=== PATIENT | male | born 2000 | race American Indian/Alaskan Native ===

== ENCOUNTER 2020-05-26 01:43 | Emergency (ER) | payer SELFPAY ==
[2020-05-26 05:32] VITALS: BP 128/82
[2020-05-26] MEDS ORDERED: methylPREDNISolone Sod Succinate 125 MG/2 ML INJ IM ONE (05:51)
[2020-05-26] MEDS ORDERED: IPRATROPIUM/ALBUTEROL SULFATE 3 ML AMPUL.NEB IH ONE (05:51)
--- NOTE | 2020-05-26 06:22 | Emergency Department Report ---
- General Chief Complaint: Upper Respiratory Infection Stated Complaint: SHORTNESS OF BREATH Source: patient Mode of arrival: Ambulatory Limitations: No Limitations - History of Present Illness Initial Comments: Patient is a 19-year-old -[place] male with a history of asthma with rare exacerbations who presents to the ED with complaint of acute onset persistent nasal and sinus congestion, persistent dry cough, shortness of breath and wheezing for the last 5 days, worse in the last 24 hours. Patient states that he has also been experiencing chest tightness from persistent cough. Patient states that he has not had any asthma attack in over 10 years and that he does not have any other treatment at home. Patient denies fever, chills, nausea, vomiting, dizziness, syncope, palpitations, diaphoresis, change in vision, abdominal pain, chest pain or headache. MD Complaint: cough, nasal congestion, sinus pain, other (wheezing and dyspnea) -: Sudden, days(s) (5) Severity: moderate Severity scale (0 -10): 4 Quality: dull, aching Consistency: intermittent Improves With: nothing Worsens With: nothing Associated Symptoms: denies other symptoms, rhinorrhea, nasal congestion, cough, shortness of breath. denies: fever, chills, myalgias, diaphoresis, headache, sore throat, stiff neck, chest pain, abdominal pain, nausea, vomiting, diarrhea, rash, confusion, weight loss, epistaxis, hoarseness, ear pain, other Treatments Prior to Arrival: none - Related Data Previous Rx's Medication Instructions Recorded Last Taken Type Albuterol Sulfate [Proventil Hfa] 1 - 2 puff IH Q6H PRN #1 hfa.aer.ad 05/26/20 Unknown Rx Azithromycin [Zithromax Z-ROSITA] 250 mg PO DAILY #6 tablet 05/26/20 Unknown Rx Benzonatate [Tessalon Perles] 100 mg PO Q8HR #30 capsule 05/26/20 Unknown Rx predniSONE [Deltasone] 40 mg PO QDAY #10 tab 05/26/20 Unknown Rx Allergies Allergy/AdvReac Type Severity Reaction Status Date / Time Penicillins Allergy Hives Verified 01/29/15 18:01 ED Review of Systems ROS: Stated complaint: SHORTNESS OF BREATH Other details as noted in HPI Constitutional: denies: chills, fever Eyes: denies: eye pain, eye discharge, vision change ENT: congestion. denies: ear pain, throat pain Respiratory: cough, shortness of breath, wheezing Cardiovascular: denies: chest pain, palpitations Endocrine: no symptoms reported Gastrointestinal: denies: abdominal pain, nausea, diarrhea Genitourinary: denies: urgency, dysuria Musculoskeletal: denies: back pain, joint swelling, arthralgia Skin: denies: rash, lesions Neurological: denies: headache, weakness, paresthesias Psychiatric: denies: anxiety, depression Hematological/Lymphatic: denies: easy bleeding, easy bruising ED Past Medical Hx - Past Medical History Previous Medical History?: Yes Hx Asthma: Yes - Social History Smoking Status: Never Smoker Substance Use Type: None - Medications Home Medications: Home Medications Medication Instructions Recorded Confirmed Last Taken Type Albuterol Sulfate [Proventil Hfa] 1 - 2 puff IH Q6H PRN #1 hfa.aer.ad 05/26/20 Unknown Rx Azithromycin [Zithromax Z-ROSITA] 250 mg PO DAILY #6 tablet 05/26/20 Unknown Rx Benzonatate [Tessalon Perles] 100 mg PO Q8HR #30 capsule 05/26/20 Unknown Rx predniSONE [Deltasone] 40 mg PO QDAY #10 tab 05/26/20 Unknown Rx ED Physical Exam - General Limitations: No Limitations General appearance: alert, in no apparent distress - Head Head exam: Present: atraumatic, normocephalic, normal inspection - Eye Eye exam: Present: normal appearance, PERRL, EOMI Pupils: Present: normal accommodation - ENT ENT exam: Present: normal orophraynx, mucous membranes moist, TM's normal bilaterally, normal external ear exam, other (Grossly congested nasal passages) - Neck Neck exam: Present: normal inspection, full ROM - Respiratory Respiratory exam: Present: wheezes (Mildly diffuse coarse wheezes throughout). Absent: respiratory distress, rhonchi, stridor, chest wall tenderness, accessory muscle use, decreased breath sounds, prolonged expiratory - Cardiovascular Cardiovascular Exam: Present: regular rate, normal rhythm, normal heart sounds. Absent: systolic murmur, diastolic murmur, rubs, gallop - GI/Abdominal GI/Abdominal exam: Present: soft, normal bowel sounds. Absent: tenderness, guarding, rebound, hyperactive bowel sounds, hypoactive bowel sounds, org anomegaly - Extremities Exam Extremities exam: Present: normal inspection, full ROM, normal capillary refill - Back Exam Back exam: Present: normal inspection, full ROM. Absent: tenderness, CVA tenderness (R), CVA tenderness (L), muscle spasm, paraspinal tenderness, vertebral tenderness - Neurological Exam Neurological exam: Present: alert, oriented X3, CN II-XII intact, normal gait, reflexes normal - Psychiatric Psychiatric exam: Present: normal affect, normal mood - Skin Skin exam: Present: warm, dry, intact, normal color. Absent: rash ED Course Vital Signs 05/26/20 01:58 Temperature 98.4 F Pulse Rate 70 Respiratory 17 Rate Blood Pressure 128/82 O2 Sat by Pulse 94 Oximetry ED Medical Decision Making - Radiology Data Radiology results: report reviewed, image reviewed Findings [facility] [address] [place] [address] XRay Report Signed Patient: PATY MORAN JR R#: [id number] : 2000 Acct:[id number] Age/Sex: 19 / M ADM Date: 05/26/20 Loc: ED Attending Dr: Ordering Physician: KATHY REYES Date of Service: 05/26/20 Procedure(s): XR chest 1V ap Accession Number(s): [id number] cc: KATHY REYES Fluoro Time In Minutes: CHEST 1 VIEW INDICATION / CLINICAL INFORMATION: cough, dyspnea, asthma. COMPARISON: None available. FINDINGS: SUPPORT DEVICES: None. HEART / MEDIASTINUM: No significant abnormality. LUNGS / PLEURA: No significant pulmonary or pleural abnormality. No pneumothorax. ADDITIONAL FINDINGS: No significant additional findings. IMPRESSION: 1. No acute findings. Signer Name: Mandi Segura MD Signed: 05/26/2020 6:28 AM Workstation Name: [id number] Transcribed By: [facility] Dictated By: Mandi Segura MD Electronically Authenticated By: Mandi Segura MD Signed Date/Time: 05/26/20627 DD/ 6 TD/TT: - Medical Decision Making This is a 19-year-old -[place]ian male with a history of asthma with rare exacerbations who presents to the ED with complaint of acute onset persistent nasal and sinus congestion, persistent dry cough, shortness of breath and wheezing for the last 5 days, worse in the last 24 hours. Patient states that he has also been experiencing chest tightness from persistent cough. Patient states that he has not had any asthma attack in over 10 years and that he does not have any other treatment at home. In the ED, patient is alert and oriented x3 and is not in distress with normal vital signs. Chest x-ray shows no acute cardiopulmonary abnormalities or pneumonitis. Patient received DuoNeb treatment in the ED, also received Solu-Medrol in the ED. On reevaluation, patient's wheezing resolved medications. Patient will discharge home on medications including albuterol inhaler, steroid and cough medications. Patient was advised to follow-up with his primary care physician in 5 to 7 days for reevaluation or return to the ED immediately if symptoms get worse. - Differential Diagnosis Asthma; Bronchitis; Pneumonia; URI; Covid-19 Critical care attestation.: If time is entered above; I have spent that time in minutes in the direct care of this critically ill patient, excluding procedure time. ED Disposition Clinical Impression: Acute bronchitis with asthma with acute exacerbation, Shortness of breath, Acute upper respiratory infection Disposition: DC-01 TO HOME OR SELFCARE Is pt being admited?: No Does the pt Need Aspirin: No Condition: Stable Instructions: Shortness of Breath, Adult, [id number], Acute Bronchitis, Adult, [id number], Upper Respiratory Infection, Adult, [id number], Asthma, Adult, [id number], Acute Bronchitis (ED) Additional Instructions: Chest x-ray shows no acute cardiopulmonary abnormalities or pneumonitis. Therefore take medications as advised, drink plenty of fluids and follow-up with your primary care physician in 5 to 7 days for reevaluation. Return to the ED immediately if symptoms get worse. Prescriptions: predniSONE [Deltasone] 40 mg PO QDAY #10 tab Albuterol Sulfate [Proventil Hfa] 1 - 2 puff IH Q6H PRN #1 hfa.aer.ad PRN Reason: Dyspnea Benzonatate [Tessalon Perles] 100 mg PO Q8HR #30 capsule Azithromycin [Zithromax Z-ROSITA] 250 mg PO DAILY #6 tablet Referrals: [facility] [Provider Group] - 3-5 Days Forms: Work/School Release Form(ED) Time of Disposition: 06:22 Print Language: TRISTANIAN
--- NOTE | 2020-05-26 06:32 | XRay Report ---
CHEST 1 VIEW INDICATION / CLINICAL INFORMATION: cough, dyspnea, asthma. COMPARISON: None available. FINDINGS: SUPPORT DEVICES: None. HEART / MEDIASTINUM: No significant abnormality. LUNGS / PLEURA: No significant pulmonary or pleural abnormality. No pneumothorax. ADDITIONAL FINDINGS: No significant additional findings. IMPRESSION: 1. No acute findings. Signer Name: Mandi Segura MD Signed: 05/26/2020 6:28 AM Workstation Name: [id number]
== END 2020-05-26 06:40 | disposition home or self-care (01) ==
LOC: ED 01:43
DX: J45.901 Unspecified asthma with (acute) exacerbation (principal); Z79.899 Other long term (current) drug therapy
CPT/HCPCS: 71045; 94640; 96372; 99283; J2930